=== PATIENT | female | born 1985 | race Caucasian/White ===

== ENCOUNTER 2021-04-18 10:47 | Inpatient (IN) | payer BC, SELFPAY ==
[2021-04-18] VITALS (65 sets, daily range): BP systolic 110–143; BP diastolic 60–86; PULSE 64–98; RESP 16–18; TEMP 36.9–37.2; O2SAT 97–100; BMI 32.3
--- NOTE | 2021-04-18 10:47 | LDADM ---
This patient, Yuki Moody, was admitted to Labor/Delivery/Recovery 105 on 04/18/21 at 10:47. Plans for labor, pain management and were discussed with patient. Patient/family oriented to hospital policies and general routines including ID bracelet, bed and alarms, visiting hours, pain management, procedures, bathroom and other care routines, personal items, smoking policy, room service/diet and guest tray routines, security routines, and visiting hours. Patient/Family are encouraged to report perceived risks to care and to ask questions if they do not understand what they are told or what they should do. See OBIX for further documentation.
[2021-04-18 13:43] LABS: Basophils Percent Auto 0.2 % (0.2-1.2); Eosinophils Absolute Auto 0.1 K/mm3 (0-0.3); Eosinophils Percent Auto 0.7 % (0-4.4); Hematocrit 34.3 % (37.0-47.0); Hemoglobin 10.9 g/dL (12.0-15.0); Immature Granulocyte Absolute 0.09 K/mm3 (0.00-0.031); Lymphocytes Absolute Auto 1.44 K/mm3 (0.9-3.2); Mean Corpuscular HGB Conc 31.8 g/dl (32-36); Mean Corpuscular Hemoglobin 27.5 pg (26-34); Mean Corpuscular Volume 86.6 fl (80-100); Mean Platelet Volume 10.4 fl (7.4-10.4); Monocytes Absolute Auto 0.5 K/mm3 (0.1-0.6); Monocytes Percent Auto 5.9 % (2.6-8.5); Neutrophils Absolute Auto 6.9 K/mm3 (1.3-6.7); Neutrophils Percent Auto 76.2 % (45.5-73.1); Platelet Count Result 207 k/mm3 (150-375); Red Blood Count 3.96 M/mm3 (4.2-5.4); Red Cell Distribution Width 13.7 % (11.5-14.5)
[2021-04-18] MEDS: LACTATED RINGERS 1,000 ML 125 ML IV CONT ×3 (14:13→22:13)
[2021-04-18] MEDS: OXYTOCIN 30 UNITS/NS 500 ML 30 UNITS/500 ML BAG 6 UNITS IV CONT (14:14)
[2021-04-18] MEDS: fentaNYL CITRATE INJ (*CRX) 100 MCG/2 ML VIAL 50 MCG IV PUSH (21:28)
--- NOTE | 2021-04-18 21:48 | WPDANESEPPF ---
Anes - Initial Pre Proc Eval Procedure: labor epidural Date/Time: 04/18/21 21:48 Surgeon: Michael Barrios MD Pre Op Diagnosis: Labor pain Pre Op Diagnosis: Leaking Patient Data Age: 35 Gender: F Height: Weight: Last Vital Signs Temp 37.2 C 04/18/21 21:27 Pulse 74 04/18/21 21:31 Resp 18 04/18/21 18:09 BP 120/75 04/18/21 21:31 Allergies Allergy/AdvReac Type Severity Reaction Status Date / Time No Known Allergies Allergy Verified 04/01/21 12:15 Home Medications Medication Instructions Recorded Confirmed Type PNV cmb#95-ferrous fumarate-FA 1 tablet PO DAILY 04/01/21 04/18/21 History [] Laboratory Tests 04/18/21 04/18/21 04/18/21 13:18 13:20 13:20 WBC 9.0 K/mm3 K/mm3 (4.5-10.0) RBC 3.96 M/mm3 L M/mm3 (4.2-5.4) Hgb 10.9 g/dL L g/dL (12.0-15.0) Hct 34.3 % L % (37.0-47.0) MCV 86.6 fl fl (80-100) MCH 27.5 pg pg (26-34) MCHC 31.8 g/dl L g/dl (32-36) RDW 13.7 % % (11.5-14.5) Plt Count 207 k/mm3 k/mm3 (150-375) MPV 10.4 fl fl (7.4-10.4) Immature Gran % (Auto) 1.0 % H % (0-0.5) Neut % (Auto) 76.2 % H % (45.5-73.1) Lymph % (Auto) 16.0 % L % (18.3-44.2) Wilkin % (Auto) 5.9 % % (2.6-8.5) Eos % (Auto) 0.7 % % (0-4.4) Baso % (Auto) 0.2 % % (0.2-1.2) Lymph # (Auto) 1.44 K/mm3 K/mm3 (0.9-3.2) Wilkin # (Auto) 0.5 K/mm3 K/mm3 (0.1-0.6) Eos # (Auto) 0.1 K/mm3 K/mm3 (0-0.3) Baso # (Auto) 0.0 K/mm3 K/mm3 (0.0-0.1) Abs Immat Gran (auto) 0.09 K/mm3 H K/mm3 (0.00-0.031) Absolute Neuts (auto) 6.9 K/mm3 H K/mm3 (1.3-6.7) Absolute Nucleated RBC 0.0 K/mm3 K/mm3 (0.0-0.012) Nucleated RBC % 0.0 % % (0.0-0.2) RPR Pending Blood Type O Positive Antibody Screen Negative Patient hx anesthesia problems: none Family hx anesthesia problems: none [facility] Family History Family History (Updated 04/01/21 @ 12:24 by Patricio Helms RN) Grandparent Dementia Father Hypothyroidism Mother High cholesterol Social History Social History Smoking status: Never smoker Second hand tobacco smoke exposure: Yes Substance use: never Gender identity (if verbalized by the patient): Female Spiritual care concerns: No Anes - Eval Final PreProcedure Day of Procedure 04/18/21 21:48 Heart: regular rate and rhythm Lungs: clear to auscultation and normal air movement Airway: Mallampati scale class II Neurological: alert and oriented ASA classification: II Anesthetic plan: proceed Anesthesia type and monitoring: regional Informed Consent: The patient's anesthetic plan and its attendant risks and benefits were discussed with the patient/family/POA. Questions were solicited and answers provided to the satisfaction of the patient/family/POA.
[2021-04-18] MEDS: AMPICILLIN 2 GM/NS 100 ML 2 GM/100 ML BAG IVPB (22:53)
[2021-04-19] VITALS (126 sets, daily range): BP systolic 97–130; BP diastolic 50–86; PULSE 64–132; RESP 15–16; TEMP 36.5–38; O2SAT 95–100
[2021-04-19] MEDS: ONDANSETRON INJ 4 MG/2 ML VIAL IV PUSH (01:47)
[2021-04-19] MEDS: LACTATED RINGERS 1,000 ML 125 ML IV CONT (01:50)
[2021-04-19] MEDS: AMPICILLIN 1 GM/NS 50 ML 1 GM/50 ML BAG IVPB ×2 (02:48→06:44)
--- NOTE | 2021-04-19 07:38 | PM.OBPRVD ---
OB - Delivery Note Procedure Delivery date: 04/19/21 Procedure: Intrapartal events: None Delivery augmentation: pitocin Delivery monitor: external FHT and internal uterine Route of delivery: Episiotomy description: Midline Delivery repair: vicryl Specimen: Yes Quantitative Blood Loss (ml): 459 Anesthesia type: Epidural Disposition: floor [place] Baby Date of : 04/19/21 Time of : 07:13 Weeks of gestation at delivery: 38 Weight (pounds): 7 Weight (ounces): 14 Placenta delivery description: Spontaneous score one minute: 7 score five minutes: 8
[2021-04-19] MEDS: OXYTOCIN 30 UNITS/NS 500 ML 30 UNITS/500 ML BAG 125 UNITS IV CONT (07:45)
[2021-04-19 08:35] LABS: Rapid Plasma Reagin Non-Reactive (NonReactive)
[2021-04-19] MEDS: IBUPROFEN 600 MG TABLET PO ×2 (09:17→16:07)
[2021-04-19] MEDS: WITCH HAZEL 40 PADS 1 PAD TOPICAL (09:17)
[2021-04-19] MEDS: BENZOCAINE 20% AER SPR (*SP) 56 GM CAN 1 SPRAY TOPICAL (09:17)
--- NOTE | 2021-04-19 11:35 | PC.NURSE ---
Mother called out for assist with feeding. Mother has at breast upon entering. Mother reports infant fed eagerly for first feeding. Reviewed infant feeding cues, frequencies, duration of feedings, feeding elimination flow sheet, and signs of adequate intake. Demonstrated stimulation techniques to wake infant for feeding. Reviewed positioning/alignment in cross cradle, holding breast in ?U? hold and guided asymmetrical latch on. Mother is more lying flat with infant on chest. Infant was latched correctly. nursed eagerly, with steady draws and frequent swallowing noted. Reviewed signs of a correct latch, effective nursing and suck swallow ratio. would slip to shallow latch, mother reports tenderness. Demonstrated how to adjust latch more deeply while feeding. Mother reports she can feel change in latch and has no tenderness. Nipple care reviewed of lanolin after feedings, warm compresses and gel pads as needed. Suggested mother stimulate while feeding to increase stimulate, increase intake and to assist with maintaining deep latch. Instructed mother to call out for RN assistance if she is unable to latch for feeding or she has discomfort with nursing. Instructed feeding should be initiated three hours from start of last feeding or if feeding cues are noted before. Mother voiced understanding of information shared.
--- NOTE | 2021-04-19 12:12 | OBPPTRN ---
1048 Patient transferred to post room #278 via W/C. Support person present. Oriented to unit, room, information board, rooming in, admission packet and security measures. Patient verbalizes understanding.
--- NOTE | 2021-04-19 14:55 | PC.NURSE ---
Mother called out for assist with feeding. Assisted with to breast. Reviewed positioning/alignment in cross cradle, holding breast in ?U? hold and guided asymmetrical latch on. Infant able to latch correctly. nursed eagerly, with steady draws and occasional swallowing noted, followed with long pausing. Reviewed signs of a correct latch, effective nursing and suck swallow ratio. would slip to shallow latch, mother reports tenderness. Demonstrated how to adjust latch more deeply while feeding. Nipple care reviewed of lanolin after feedings, warm compresses and gel pads as needed. Stressed for mother to stimulate while feeding to increase stimulate, increase intake and to assist with maintaining deep latch. Mother allows to fall asleep at breast, then releases latch having to wake and start from beginning. LC at bedside stimulating infant while feeding, infant nursed eagerly with stimulation, approximately 5 minutes observed. Instructed mother to call out for RN assistance if she is unable to latch for feeding or she has discomfort with nursing. Instructed feeding should be initiated three hours from start of last feeding or if feeding cues are noted before. Mother voiced understanding of information shared.
[2021-04-19] MEDS: DOCUSATE SODIUM 100 MG CAPSULE PO (16:07)
[2021-04-20 00:20] VITALS: BP 116/73; PULSE 80; RESP 16; TEMP 37.9; O2SAT 99
[2021-04-20] MEDS: IBUPROFEN 600 MG TABLET PO ×3 (00:22→17:51)
[2021-04-20] MEDS: ACETAMINOPHEN 325 MG TABLET 650 MG PO (00:24)
[2021-04-20 03:40] VITALS: BP 112/62; PULSE 67; RESP 15; TEMP 36.7; O2SAT 98
[2021-04-20 05:19] LABS: Hematocrit 26.4 % (37.0-47.0); Hemoglobin 8.2 g/dL (12.0-15.0)
[2021-04-20 07:40] VITALS: BP 121/72; PULSE 73; RESP 16; TEMP 36.9; O2SAT 98
--- NOTE | 2021-04-20 08:08 | PM.OBPNVD ---
OB - PN: Subj Subjective Date/time seen: 04/20/21 08:08 Patient comments: no complaints baby status: doing well OB - PN: Obj Data Labs CBC & Chem 7: 04/20/21 03:49 Labs: Laboratory Results - last 24 hr 04/18/21 04/20/21 13:20 03:49 Hgb 8.2 L Hct 26.4 L RPR Non-reactive OB - PN A/P Plan day: 1 Plan: routine care Time Spent With Patient Time: Total time spent is greater than 50% in coordination of care (as documented) at patient's floor/unit and/or counseling patient: Review of Systems Review of Systems: All systems reviewed & are unremarkable except as noted in HPI and below Exam Narrative: Exam Narrative: perineal swelling, no sign of infection Const: General: cooperative Nutritional Appearance: average body habitus
[2021-04-20] MEDS: POLYSACCHARIDE IRON COMPLEX 150 MG CAPSULE PO ×2 (08:50→17:51)
[2021-04-20] MEDS: DOCUSATE SODIUM 100 MG CAPSULE PO ×2 (08:50→17:51)
[2021-04-20] MEDS: MULTIVIT/MIN/PREN/FOL AC/IRON TABLET 1 TAB PO (08:50)
--- NOTE | 2021-04-20 10:30 | PC.NURSE ---
Mother called out for assist with feeding. Mother reports infant eagerly fed during the night without difficulties/discomfort. Mother wishes this feeding to be observed. Observed mother putting infant to breast. Reviewed positioning/alignment in football, holding breast in ?C? hold and guided asymmetrical latch on. able to latch correctly. nursed eagerly, with steady draws and frequent swallowing noted. Reviewed signs of a correct latch, effective nursing and suck swallow ratio. Infant was able to maintain latch without discomfort to mother. Nipple care reviewed of lanolin after feedings, warm compresses as needed. Suggested mother stimulate while feeding to increase stimulate, increase intake and to assist with maintaining deep latch. Instructed mother to call out for RN assistance if she is unable to latch infant for feeding or she has discomfort with nursing. Instructed feeding should be initiated three hours from start of last feeding or if feeding cues are noted before. Mother voiced understanding of information shared.
--- NOTE | 2021-04-20 13:05 | WPDANLDPN2 ---
Anes-Prog Note L&D Date/Time: 04/20/21 13:05 Comfortable throughout: labor Neuraxial method: epidural Epidural/Spinal procedure site: clean & non-tender Neuro status: Neuro function grossly intact. Cardiovascular status: normal Respiratory status: normal Airway patency: baseline Mental status: baseline Post-Op hydration status: normal Vital Signs: Last Vital Signs Temp 36.9 C 04/20/21 07:40 Pulse 73 04/20/21 07:40 Resp 16 04/20/21 07:40 BP 121/72 04/20/21 07:40 Pulse Ox 98 04/20/21 07:40 Pain score (VAS): 0 Post-procedural complaints: none Patient feedback: Patient satisfied with anesthetic care.
--- NOTE | 2021-04-20 13:15 | PC.NURSE ---
Mother called out for assist with waking for feeding. Demonstrated stimulation techniques to wake for feeding. Attempt for 5 minutes, suggested mother eat her lunch and attempt again in 30 minutes.
--- NOTE | 2021-04-20 13:55 | PC.NURSE ---
Mother called out for assist with feeding, mother reports infant will not wake to feed. Demonstrated stimulation techniques to wake for feeding, infant easily awoken with feeding cues noted. Assisted with to breast. Reviewed positioning/alignment in cross cradle, holding breast in ?U? hold and guided asymmetrical latch on. able to latch correctly. Infant nursed eagerly, with steady draws and frequent swallowing noted. Reviewed signs of a correct latch, effective nursing and suck swallow ratio. was able to maintain latch without discomfort to mother. Suggested mother stimulate while feeding to increase stimulate, increase intake and to assist with maintaining deep latch. Instructed mother to call out for RN assistance if she is unable to latch for feeding or she has discomfort with nursing.
[2021-04-20 18:50] VITALS: BP 134/80; PULSE 79; RESP 16; TEMP 36.7
--- NOTE | 2021-04-21 07:15 | PCDIET ---
Observed mother is able to independently latch with appropriate positioning/alignment. She denies any nipple discomfort, is feeding as required and waking infant to feed if needed. has had at least 8 effective feedings in the past 24 hours, and is currently meeting outcomes for weight, output, jaundice and feeding frequencies. Mother states she feels confident to continue effective at home. Reviewed transition to breast milk, signs of adequate intake, and engorgement/relief. Instructed to call ICP if intake/output less than required. Reviewed regular medications mother is taking. Information provided per Roxana. Reviewed community resources on the [facility] website and in the Mom/Baby guide. Information on outpatient services provided. Mother has no further questions at this time.
--- NOTE | 2021-04-21 07:27 | PM.OBPNVD ---
OB - PN: Subj Subjective Date/time seen: 04/21/21 07:27 Patient comments: no complaints baby status: doing well OB - PN: Obj Data Labs CBC & Chem 7: 04/20/21 03:49 OB - PN A/P Plan day: 2 Plan: routine care and discharge home Time Spent With Patient Time: Total time spent is greater than 50% in coordination of care (as documented) at patient's floor/unit and/or counseling patient: Review of Systems Review of Systems: All systems reviewed & are unremarkable except as noted in HPI and below Exam Const: General: cooperative Orientation/consciousness: patient oriented x3
[2021-04-21 08:00] VITALS: BP 118/75; PULSE 99; RESP 18; TEMP 36.7; O2SAT 100
[2021-04-21] MEDS: DOCUSATE SODIUM 100 MG CAPSULE PO (08:54)
[2021-04-21] MEDS: MULTIVIT/MIN/PREN/FOL AC/IRON TABLET 1 TAB PO (08:54)
[2021-04-21] MEDS: POLYSACCHARIDE IRON COMPLEX 150 MG CAPSULE PO (08:54)
[2021-04-24 11:40] VITALS: BP 145/88; PULSE 70; RESP 20; TEMP 37.2; O2SAT 99
--- NOTE | 2021-04-24 17:06 | P.DS_ITS ---
DS: Admitting Diagnosis Admitting Diagnosis Admitting Diagnosis: labor OB - DS: Summary OB Procedures : None OB Procedures Intrapartum: Episiotomy and Other OB Procedures: : None Time Spent with Patient Time attestation: Total time spent providing and/or coordinating discharge services: DS: Data Data Completed and Pending Completed studies during hospitalization: Pending at discharge 04/19/21 07:17 Surgical [PTH] Routine Discharge Plan Discharge Attending physician on discharge: Erica Salazar Consulting providers: Toña López Discharging Clinician: Toña López Patient Disposition: Home, Self-Care Activity: pelvic rest Diet: regular Discharge Instructions: Education: Mom and Baby Guide Given to: Mother Follow-Up: Call your delivering provider's office for an appointment to be seen in: 4 Weeks Mom and baby should come to the [facility] for the follow-up appointment. Appointment Date/Time: April 24, 2021 at 11:00 am What to expect at your follow-up visit: Physical Assessment Call [phone] if you are unable to keep your appointment time. BREAST CARE: * Wear a snug supportive bra. * For engorgement discomfort: Breast Feeding: * Apply warm moist washcloths * Express milk as needed to relieve engorgement * Wear loose clothing * For sore nipples: * Identify correct latch-on * Apply warm moist washcloths before and after nursing * Air dry nipples after nursing * May apply Lansinoh cream to nipples PERINEAL CARE: * Until bleeding stops, use your josie bottle after urinating * Change your pad frequently throughout the day * You may take sitz baths several times a day (fill your bathtub with warm water and soak for 20 minutes.) Do NOT bathe in the water * No tub baths until seen by your physician - You may shower ACTIVITY: * Rest as much as possible. * Do not exercise or lift anything heavier than your baby (such as laundry or other children.) * Avoid stairs or driving as much as possible. * Do not put anything into the vagina. No douching, tampons, or sexual activity until seen by physician. NOTIFY PHYSICIAN IF YOU HAVE ANY QUESTIONS OR IF ANY OF THE FOLLOWING SYMPTOMS OCCUR: * If your perineum becomes red, swollen, or more painful than what you have experienced in the hospital. * If your vaginal bleeding becomes foul smelling. * If your vaginal bleeding becomes more heavy than a period or if your bleeding changes from pink to bright red. However, you may pass an occasional walnut- sized clot once or twice for the first week . * If you experience a sharp, shooting pain in you calves. * If you discover a hard, reddened area on your breast or if you experience flu- like symptoms. DIET: * Eat regular, well-balanced meals. * Drink plenty of fluids daily. If , drink to thirst. Stand Alone Forms: General Discharge Information Follow-up/Referrals: Michael Barrios MD [Physician] - 4 Weeks Discharge Medications: Continued PNV cmb#95-ferrous fumarate-FA [] 28 mg iron- 800 mcg Tablet 1 tablet PO DAILY RF: 0 Date of admission: 04/18/21 10:47 Primary Care Provider: PHYSICIAN,STUD MASTER/MISTRESS Admitting Provider: Michael Barrios Attending physician on admission: Michael Barrios Condition: Stable
== END 2021-04-21 12:16 | disposition home or self-care (01) | DRG 807 ==
LOC: ANHLDR 12:00 → ANHOB2 04-19 10:53
PROVIDERS: Admitting Provider Obstetrics & Gynecology; Visit Provider Obstetrics & Gynecology
DX: O42.92 Full-term premature rupture of membranes, unspecified as to length of time between rupture and onset of labor (principal); Z37.0 Single live birth; O69.81X0 Labor and delivery complicated by cord around neck, without compression, not applicable or unspecified; Z3A.38 38 weeks gestation of pregnancy
CPT/HCPCS: 36415; 84112; 85014; 85018; 85025; 86592; 86850; 86900; 86901; 88307; A9270; J0290; J2405; J2590; J2795; J3010; J7120

== ENCOUNTER 2021-04-24 12:16 | Inpatient (IN) | payer BC, SELFPAY ==
[2021-04-24] VITALS (21 sets, daily range): BP systolic 134–162; BP diastolic 72–96; PULSE 60–85; RESP 16–18; TEMP 37
[2021-04-24 12:44] LABS: Basophils Percent Auto 0.2 % (0.2-1.2); Eosinophils Percent Auto 0.4 % (0-4.4); Hematocrit 26.9 % (37.0-47.0); Hemoglobin 8.3 g/dL (12.0-15.0); Immature Granulocyte Absolute 0.17 K/mm3 (0.00-0.031); Immature Granulocyte Percent A 1.8 % (0-0.5); Lymphocytes Absolute Auto 1.09 K/mm3 (0.9-3.2); Lymphocytes Percent Auto 11.6 % (18.3-44.2); Mean Corpuscular HGB Conc 30.9 g/dl (32-36); Mean Corpuscular Hemoglobin 27.5 pg (26-34); Mean Corpuscular Volume 89.1 fl (80-100); Mean Platelet Volume 8.8 fl (7.4-10.4); Monocytes Absolute Auto 0.5 K/mm3 (0.1-0.6); Monocytes Percent Auto 5.4 % (2.6-8.5); Neutrophils Absolute Auto 7.6 K/mm3 (1.3-6.7); Neutrophils Percent Auto 80.6 % (45.5-73.1); Nucleated Red Blood Cells Perc 0.4 % (0.0-0.2); Platelet Count Result 244 k/mm3 (150-375); Red Blood Count 3.02 M/mm3 (4.2-5.4); Red Cell Distribution Width 14.1 % (11.5-14.5); White Blood Count 9.4 K/mm3 (4.5-10.0)
[2021-04-24 12:55] LABS: Alanine Aminotransferase 29 U/L (4-35); Albumin Level 3.2 g/dL (3.5-5.1); Alkaline Phosphatase 132 U/L (38-126); Anion Gap 3 mmol/L (8-16); Aspartate Amino Transferase 39 U/L (14-36); Bilirubin,Total 1.1 mg/dL (0.2-1.3); Blood Urea Nitrogen 6 mg/dL (7-17); Calcium 8.4 mg/dL (8.4-10.2); Carbon Dioxide 24 mmol/L (22-30); Chloride 109 mmol/L (98-107); Estimated Glomerular Filt Rate > 60; Glucose 83 mg/dL (65-105); Potassium 3.8 mmol/L (3.4-5.0); Sodium 136 mmol/L (137-145); Uric Acid 4.5 mg/dL (2.5-7.5)
[2021-04-24] MEDS: MAGNESIUM SULF 4 GM/WATER100ML 4 GM/100 ML BAG IVPB (16:33)
[2021-04-24] MEDS: LACTATED RINGERS 1,000 ML 75 ML IV CONT (16:34)
[2021-04-24] MEDS: MAGNESIUM SULF 20GM/WATER500ML 500 ML 50 MG IV CONT (17:06)
--- NOTE | 2021-04-24 21:14 | PC.NURSE ---
Pt is currently resting quietly with eyes closed and skin to skin. Father of baby in room with mother and for infant cares. Pt expressed desire to pump breasts for when father takes infant home tomorrow since she has been exclusively thus far since . Breast pump and supplies provided at bedside, however pt did not want to go over pumping setup and supplies at this time, since infant was actually able to go to the breast.
[2021-04-24] MEDS: IBUPROFEN 600 MG TABLET PO (22:38)
[2021-04-24] MEDS: WITCH HAZEL 40 PADS 1 PAD TOPICAL (22:39)
[2021-04-24] MEDS: BENZOCAINE 20% AER SPR (*SP) 56 GM CAN 1 SPRAY TOPICAL (22:39)
[2021-04-25] VITALS (61 sets, daily range): BP systolic 126–141; BP diastolic 69–84; PULSE 57–83; RESP 12–18; TEMP 36.3–37; O2SAT 95–100
[2021-04-25] MEDS: MAGNESIUM SULF 20GM/WATER500ML 500 ML 50 MG IV CONT ×2 (02:47→13:20)
[2021-04-25 05:33] LABS: Hematocrit 28.5 % (37.0-47.0); Hemoglobin 8.8 g/dL (12.0-15.0); Mean Corpuscular HGB Conc 30.9 g/dl (32-36); Mean Corpuscular Hemoglobin 27.6 pg (26-34); Mean Corpuscular Volume 89.3 fl (80-100); Mean Platelet Volume 8.7 fl (7.4-10.4); Platelet Count Result 294 k/mm3 (150-375); Red Blood Count 3.19 M/mm3 (4.2-5.4); Red Cell Distribution Width 14.2 % (11.5-14.5); White Blood Count 8.6 K/mm3 (4.5-10.0)
[2021-04-25 05:52] LABS: Magnesium 5.9 mg/dL (1.6-2.3); Uric Acid 3.9 mg/dL (2.5-7.5)
[2021-04-25 05:56] LABS: Alanine Aminotransferase 26 U/L (4-35); Albumin Level 3.2 g/dL (3.5-5.1); Alkaline Phosphatase 142 U/L (38-126); Anion Gap 4 mmol/L (8-16); Aspartate Amino Transferase 41 U/L (14-36); Bilirubin,Total 1.1 mg/dL (0.2-1.3); Blood Urea Nitrogen 5 mg/dL (7-17); Carbon Dioxide 27 mmol/L (22-30); Chloride 108 mmol/L (98-107); Estimated Glomerular Filt Rate > 60; Glucose 100 mg/dL (65-105); Potassium 3.6 mmol/L (3.4-5.0); Sodium 139 mmol/L (137-145)
[2021-04-25] MEDS: LACTATED RINGERS 1,000 ML 75 ML IV CONT (07:03)
[2021-04-25] MEDS: IBUPROFEN 600 MG TABLET PO ×3 (07:03→21:03)
--- NOTE | 2021-04-25 07:48 | PM.OBPNLAB ---
Pain Control Date/time seen: 04/25/21 07:48 Comments: BPs since mag started 126-154/80s. Has mild MOHR since mag started Upset at being admitted and away from baby unless someone can stay with her. Assessment and Plan Comments: COntinue mag for 24 hours. BPs improved over on admission. Will monitor overnight after mag off this evening. Repeat labs this am.
[2021-04-26 01:11] VITALS: BP 130/79; PULSE 68
[2021-04-26 05:30] VITALS: BP 131/81; PULSE 62
[2021-04-26 05:48] LABS: Mean Platelet Volume 8.6 fl (7.4-10.4); Platelet Count Result 330 k/mm3 (150-375)
[2021-04-26 06:03] LABS: Alanine Aminotransferase 22 U/L (4-35); Albumin Level 3.1 g/dL (3.5-5.1); Alkaline Phosphatase 129 U/L (38-126); Anion Gap 3 mmol/L (8-16); Aspartate Amino Transferase 28 U/L (14-36); Bilirubin,Total 0.8 mg/dL (0.2-1.3); Blood Urea Nitrogen 6 mg/dL (7-17); Calcium 7.1 mg/dL (8.4-10.2); Carbon Dioxide 27 mmol/L (22-30); Chloride 110 mmol/L (98-107); Estimated Glomerular Filt Rate > 60; Glucose 88 mg/dL (65-105); Potassium 3.8 mmol/L (3.4-5.0); Sodium 140 mmol/L (137-145); Uric Acid 3.8 mg/dL (2.5-7.5)
--- NOTE | 2021-04-26 07:09 | PM.IMHP ---
H&P: HPI History of Present Illness Date/Time: 04/26/21 07:09 Chief Complaint: elevated BP Narrative: Pt presented on 04/24 for routine hospital follow up and had elevated BPs, 140s-160s/90s/. She had been normotensive through her whole . She was admitted for PreE and received magnesium sulfate for 24 hours. Following this her BPs were 130s/80s. She was asymptomatic. She was discharged home with close follow up. [facility] Family History Family History (Updated 04/01/21 @ 12:24 by Patricio Helms RN) Grandparent Dementia Father Hypothyroidism Mother High cholesterol Social History Social History Smoking status: Never smoker Second hand tobacco smoke exposure: Yes Substance use: never Gender identity (if verbalized by the patient): Female Spiritual care concerns: No Meds Home Medications and Allergies Home Medications Medication Instructions Recorded Confirmed Type PNV cmb#95-ferrous fumarate-FA 1 tablet PO DAILY 04/01/21 04/18/21 History [] Allergies Allergy/AdvReac Type Severity Reaction Status Date / Time No Known Allergies Allergy Verified 04/01/21 12:15 Vital Signs Vital Signs - 24 hr 04/25/21 07:15 04/25/21 08:40 04/25/21 11:07 Temperature 98.1 F Pulse Rate 83 61 64 Respiratory Rate 18 Blood Pressure 135/84 129/82 129/79 Pulse Oximetry 99 100 04/25/21 11:12 04/25/21 13:11 04/25/21 13:32 Temperature 97.3 F L 98.6 F Pulse Rate 64 82 82 Respiratory Rate 16 16 Blood Pressure 129/79 134/69 134/69 Pulse Oximetry 100 04/25/21 13:33 04/25/21 17:15 04/25/21 17:16 Temperature 98.6 F 97.6 F Pulse Rate 82 57 L Respiratory Rate 16 16 Blood Pressure 134/69 137/82 Pulse Oximetry 100 04/25/21 21:03 04/25/21 21:13 04/26/21 01:11 Temperature 98.1 F Pulse Rate 66 68 Respiratory Rate Blood Pressure 126/79 130/79 Pulse Oximetry 99 04/26/21 05:30 Temperature Pulse Rate 62 Respiratory Rate Blood Pressure 131/81 Pulse Oximetry Exam Const: General: no acute distress Resp: Auscultation: clear to auscultation bilaterally Cardio: Rate: regular rate Rhythm: regular rhythm GI: GI Palp: Yes Soft to palpation Psych: Mental Status: mental status grossly normal Affect: normal affect H&P: Results Labs Labs: Short CBC 04/26/21 Range/Units 05:33 Plt Count 330 (150-375) k/mm3 BMP 04/26/21 05:33 Sodium 140 Potassium 3.8 Chloride 110 H Carbon Dioxide 27 BUN 6 L Creatinine 0.70 Glucose 88 Calcium 7.1 L Liver Function 04/26/21 Range/Units 05:33 Total Bilirubin 0.8 (0.2-1.3) mg/dL AST 28 (14-36) U/L ALT 22 (4-35) U/L Alkaline Phosphatase 129 H (38-126) U/L Albumin 3.1 L (3.5-5.1) g/dL Assessment and Plan Assessment and plan (1) Preeclampsia in period: Code(s): O14.95 - Unspecified pre-eclampsia, complicating the puerperium Status: Acute Assessment and Plan: mag for 24 hours monitor BPs
--- NOTE | 2021-04-26 07:13 | PM.OBPNVD ---
OB - PN: Subj Subjective Date/time seen: 04/26/21 07:13 Narrative: Feeling better since magnesium off. BPs 130s/70s-80s. Denies MOHR/BV/EP. OB - PN: Obj Data Labs CBC & Chem 7: 04/26/21 05:33 04/26/21 05:33 Labs: Laboratory Results - last 24 hr 04/26/21 04/26/21 05:33 05:33 Plt Count 330 MPV 8.6 Sodium 140 Potassium 3.8 Chloride 110 H Carbon Dioxide 27 Anion Gap 3 L BUN 6 L Creatinine 0.70 Estim Creat Clear Calc Not Reportable Estimated GFR > 60 Glucose 88 Uric Acid 3.8 Calcium 7.1 L Total Bilirubin 0.8 AST 28 ALT 22 Alkaline Phosphatase 129 H Total Protein 7.0 Albumin 3.1 L OB - PN A/P Plan Comments: PreE, sp mag, BPs much better DC home this am, FU BP check in office 2 days. Time Spent With Patient Time: Total time spent is greater than 50% in coordination of care (as documented) at patient's floor/unit and/or counseling patient: Exam Const: General: cooperative, comfortable and no acute distress GI: GI Palp: Yes Soft to palpation
--- NOTE | 2021-04-26 07:19 | P.DS_ITS ---
DS: Admitting Diagnosis Admitting Diagnosis Admitting Diagnosis: preeclampsia DS: Discharge Diagnosis Discharge Diagnosis (1) Preeclampsia in period: Code(s): O14.95 - Unspecified pre-eclampsia, complicating the puerperium Status: Acute OB - DS: Summary Hospital Course Hospital Course: The patient was admitted for preeclampsia. Received mag sulfate for 24 hours. BPs improved. OB Procedures : None OB Procedures Intrapartum: Spontaneous Vag Delivery OB Procedures: : None Time Spent with Patient Time attestation: Total time spent providing and/or coordinating discharge services: Exam Const: General: healthy appearing and no acute distress GI: Inspection: normal to inspection DS: Data Data Completed and Pending Labs on day of discharge: Labs from last 24 hours 04/26/21 04/26/21 05:33 05:33 Plt Count 330 MPV 8.6 Sodium 140 Potassium 3.8 Chloride 110 H Carbon Dioxide 27 Anion Gap 3 L BUN 6 L Creatinine 0.70 Estim Creat Clear Calc Not Reportable Estimated GFR > 60 Glucose 88 Uric Acid 3.8 Calcium 7.1 L Total Bilirubin 0.8 AST 28 ALT 22 Alkaline Phosphatase 129 H Total Protein 7.0 Albumin 3.1 L Discharge Plan Discharge Attending physician on discharge: Erica Salazar Discharging Clinician: Erica Salazar Anticipated Discharge Date/Time: 04/26/21 09:00 Patient Disposition: Home, Self-Care Activity: pelvic rest Diet: as tolerated Patient Instructions: Antibiotic Form Stand Alone Forms: General Discharge Information Follow-up/Referrals: Erica Salazar MD [Physician] - (2 days BP check) Discharge Medications: Continued PNV cmb#95-ferrous fumarate-FA [] 28 mg iron- 800 mcg Tablet 1 tablet PO DAILY RF: 0 Date of admission: 04/24/21 12:16 Primary Care Provider: PHYSICIAN,SAMPLE WORKER Admitting Provider: Erica Salazar Attending physician on admission: Erica Salazar Condition: Stable
[2021-04-26 08:30] VITALS: RESP 16; TEMP 37.2
[2021-04-26 08:31] VITALS: BP 125/76; PULSE 79
== END 2021-04-26 09:30 | disposition home or self-care (01) | DRG 776 ==
LOC: ANHOBOP 12:19 → ANHOBPP 12:19 → ANHOBOP 04-25 14:30 → ANHOBPP 04-25 14:31
PROVIDERS: Advanced Practice Midwife; Admitting Provider Obstetrics & Gynecology; Visit Provider Obstetrics & Gynecology
DX: O14.95 Unspecified pre-eclampsia, complicating the puerperium (principal)
CPT/HCPCS: 36415; 80053; 83735; 84550; 85025; 85027; 85049; 99199; A9270; J3475; J7120